=== PATIENT | male | born 1980 | race African-American/Black ===

== ENCOUNTER 2022-12-31 17:53 | Inpatient (IN) | payer OTHER ==
[~2022-12-31] VITALS: Ht 188 cm; Wt 90.7 kg
[2022-12-31] MEDS ORDERED: ONDANSETRON ODT 4 MG TAB PO ONE (20:15)
[2022-12-31] MEDS ORDERED: HYDROcodone-ACET 10/325MG TAB PO ONE (20:15)
[2022-12-31 20:40] VITALS: PULSE 61; RESP 16; O2SAT 100
[2022-12-31] MEDS ORDERED: ONDANSETRON HCL 4 MG/2 ML VIAL IV PRN (21:15)
[2022-12-31] MEDS: PANTOPRAZOLE 40 MG/10 ML VIAL INJ IV SCH (22:09)
[2023-01-01] VITALS (8 sets, daily range): BP systolic 120–140; BP diastolic 74–87; PULSE 62–68; RESP 14–18; TEMP 98.2–98.7; O2SAT 93–100
[2023-01-01] MEDS: HYDROcodone-ACET 5/325MG TAB PO PRN ×3 (01:57→12:32)
[2023-01-01 08:31] LABS: Basophils # (auto) 0 10 ^3/uL (0-0.2); Basophils % (auto) 0.4 % (0.0-2.0); Eosinophils # (auto) 0.2 10 ^3/uL (0-0.8); Eosinophils % (auto) 2.3 % (0.0-7.0); Hemoglobin 13.4 g/dL (13.5-17.5); Lymphocytes # (auto) 2.9 10 ^3/uL (0.4-5.4); Lymphocytes % (auto) 42.1 % (10.0-50.0); Mean Corpuscular Hgb Conc. 32.8 g/dL (32.0-36.0); Mean Corpuscular Volume 88.6 fL (80.0-100.0); Monocytes # (auto) 1.1 10 ^3/uL (0-1.3); Monocytes % (auto) 16.2 % (0.0-12.0); Neutrophils # (auto) 2.7 10 ^3/uL (1.6-8.6); Nucleated Red Blood Cells % 0.2 %; Red Blood Cells 4.63 10^6/uL (4.5-5.90); Red Cell Distribution Width 14.9 % (11.8-14.3); White Blood Cell 6.8 10^3/uL (4.4-10.8)
[2023-01-01] MEDS: ENOXAPARIN SOD 40 MG/0.4 ML SYRINGE SC SCH (08:33)
[2023-01-01] MEDS: PANTOPRAZOLE 40 MG/10 ML VIAL INJ IV SCH ×2 (08:33→23:18)
[2023-01-01 08:57] LABS: INR 1.22 (0.9-1.15)
[2023-01-01 09:09] LABS: Albumin 3.4 g/dL (3.4-5.0); Calcium 8.2 mg/dL (8.5-10.1); Potassium 4.1 mmol/L (3.5-5.1)
[2023-01-01 09:14] LABS: BUN/Creatinine Ratio 7.8 (10.0-20.0); Bilirubin, Total 1.1 mg/dL (0.2-1.0); Total Protein 6.7 g/dL (6.4-8.2)
[2023-01-01] MEDS: HYDROmorphone HCL 2 MG/ML VL/or syr IV PRN ×2 (17:21→23:21)
[2023-01-02] VITALS (7 sets, daily range): BP systolic 116–138; BP diastolic 69–89; PULSE 67–76; RESP 14–18; TEMP 98.2–99; O2SAT 93–100
[2023-01-02] MEDS: HYDROmorphone HCL 2 MG/ML VL/or syr IV PRN ×3 (04:33→22:38)
[2023-01-02 08:03] LABS: Albumin 3.5 g/dL (3.4-5.0); Calcium 8.7 mg/dL (8.5-10.1)
[2023-01-02 08:09] LABS: BUN/Creatinine Ratio 9.4 (10.0-20.0); Bilirubin, Total 0.9 mg/dL (0.2-1.0); Total Protein 7.3 g/dL (6.4-8.2)
[2023-01-02 08:42] LABS: INR 1.21 (0.9-1.15); Partial Thromboplastin Time 33.5 SEC (24.5-34.5)
[2023-01-02] MEDS: PANTOPRAZOLE 40 MG/10 ML VIAL INJ IV SCH ×2 (08:49→22:38)
[2023-01-02] MEDS: HYDROcodone-ACET 5/325MG TAB PO PRN (08:51)
[2023-01-02] MEDS: ENOXAPARIN SOD 40 MG/0.4 ML SYRINGE SC SCH (08:51)
[2023-01-02 09:20] LABS: Urine Bacteria NONE SEEN /hpf (None Seen); Urine Blood Negative /uL (Negative); Urine Specific Gravity 1.011 (1.001-1.035); Urine WBC <1 /hpf (0 - 3)
[2023-01-03] VITALS (7 sets, daily range): BP systolic 116–171; BP diastolic 77–100; PULSE 66–85; RESP 10–18; TEMP 98.2–98.5; O2SAT 94–100
[2023-01-03] MEDS: HYDROmorphone HCL 2 MG/ML VL/or syr IV PRN ×4 (05:16→19:56)
[2023-01-03] MEDS ORDERED: ROCURONIUM 10MG/ML 10ML VIAL IV ONE ×3 (09:08→09:28)
[2023-01-03] MEDS ORDERED: PROPOFOL 10 MG/ML 20 ML IV ONE (09:08)
[2023-01-03] MEDS ORDERED: MIDAZOLAM HCL 2MG/2ML 2ml VIAL (1mg/ml) ONE (09:08)
[2023-01-03] MEDS ORDERED: fentaNYL CITRATE 100 MCG/2 ML VL ONE (09:08)
[2023-01-03] MEDS ORDERED: ONDANSETRON HCL 4 MG/2 ML VIAL ONE (09:08)
[2023-01-03] MEDS ORDERED: SODIUM CHLORIDE LOCK 10 ML ONE (09:08)
[2023-01-03] MEDS ORDERED: MEPERIDINE HCL (50 MG/ML) 1 ML VIAL ONE (09:08)
[2023-01-03] MEDS ORDERED: DexAMETHasone SOD PHOS 10MG/1ML VIAL INJ ONE (09:08)
[2023-01-03] MEDS ORDERED: ceFAZolin 1GM/50ML 50 ML IV ONE (09:30)
[2023-01-03] MEDS ORDERED: LIDOCAINE W/ EPINEPHRINE 1% 20ML VIAL ONE (09:44)
[2023-01-03] MEDS ORDERED: BUPIVACAINE 0.25% INJ 50ML VIAL ONE (09:44)
[2023-01-03] MEDS ORDERED: MORPHINE SULFATE INJ 2 MG/ml SYRG IV PRN (09:45)
[2023-01-03] MEDS ORDERED: HYDROmorphone HCL 2 MG/ML VL/or syr IV PRN ×2 (09:45)
[2023-01-03] MEDS ORDERED: METOCLOPRAMIDE HCL 5MG/ml INJ 2ml VIAL IV PRN (09:45)
[2023-01-03] MEDS: PANTOPRAZOLE 40 MG/10 ML VIAL INJ IV SCH ×2 (09:46→21:45)
[2023-01-03] MEDS: ENOXAPARIN SOD 40 MG/0.4 ML SYRINGE SC SCH (09:47)
[2023-01-03] MEDS: HYDROcodone-ACET 5/325MG TAB PO PRN (18:35)
[2023-01-04] VITALS (7 sets, daily range): BP systolic 135–153; BP diastolic 80–97; PULSE 67–85; RESP 16–18; TEMP 98.3–98.8; O2SAT 94–99
[2023-01-04] MEDS: HYDROmorphone HCL 2 MG/ML VL/or syr IV PRN ×4 (00:42→13:44)
[2023-01-04] MEDS: PANTOPRAZOLE 40 MG/10 ML VIAL INJ IV SCH (09:04)
[2023-01-04] MEDS: ENOXAPARIN SOD 40 MG/0.4 ML SYRINGE SC SCH (09:04)
[2023-01-04] MEDS: HYDROcodone-ACET 5/325MG TAB PO PRN ×2 (18:34→22:32)
[2023-01-05] MEDS: HYDROcodone-ACET 5/325MG TAB PO PRN ×2 (04:19→10:38)
[2023-01-05 05:00] VITALS: BP 125/86; PULSE 90; RESP 16; TEMP 98.5; O2SAT 97
[2023-01-05 08:15] VITALS: PULSE 67; O2SAT 98
[2023-01-05 09:00] VITALS: BP 127/84; PULSE 88; RESP 20; TEMP 98.9; O2SAT 98
[2023-01-05] MEDS ORDERED: PANTOPRAZOLE 40 MG TAB PO SCH (10:00)
[2023-01-05] MEDS: ENOXAPARIN SOD 40 MG/0.4 ML SYRINGE SC SCH (10:36)
[2023-01-05] MEDS ORDERED: NAP500T PO (12:18)
[2023-01-05 13:00] VITALS: BP 122/72; PULSE 88; RESP 17; TEMP 98.8; O2SAT 96
== END 2023-01-05 16:45 | DRG 502 ==
LOC: EEVIPCON 17:53 → ER 17:53 → OVERFLOW 21:08 → EAST 22:32
PROVIDERS: ADMIT Specialist; ATTEND Internal Medicine
PROC: 0PSH34Z Reposition Right Radius with Internal Fixation Device, Percutaneous Approach (ICD-10-PCS; 2023-01-03)
PROC: 0LU30JZ Supplement Right Upper Arm Tendon with Synthetic Substitute, Open Approach (ICD-10-PCS; 2023-01-03)
PROC: 0PSK04Z Reposition Right Ulna with Internal Fixation Device, Open Approach (ICD-10-PCS; principal; 2023-01-03 09:48)
DX: S52.021A Displaced fracture of olecranon process without intraarticular extension of right ulna, initial encounter for closed fracture (principal); S52.121A Displaced fracture of head of right radius, initial encounter for closed fracture; W18.39XA Other fall on same level, initial encounter; J45.909 Unspecified asthma, uncomplicated; Y93.67 Activity, basketball; Y92.89 Other specified places as the place of occurrence of the external cause; Y99.8 Other external cause status
CPT/HCPCS: 36415; 71045; 73070; 73080; 73200; 76000; 80053; 81001; 85025; 85610; 85730; 86850; 86900; 86901; 87081; 97110; 97116; 97163; C9113; G0378; J0690; J1100; J2250; J2405; J2704; J3490; Q0162